=== PATIENT | male | born 2000 | race Two or more races ===

== ENCOUNTER → 2022-11-19 | Outpatient (CLI) | payer BC ==
[2022-11-19 06:52] LABS: Urine Bacteria NONE SEEN /hpf (None Seen); Urine Blood Negative /uL (Negative); Urine Clarity Clear (Clear); Urine Color Colorless (Yellow); Urine Protein, UAD Negative (Negative); Urine Specific Gravity 1.005 (1.001-1.035); Urine Urobilinogen Normal (Negative); Urine WBC <1 /hpf (0 - 3); Urine pH 6.5 (5.0-8.0)
[2022-11-19 07:05] LABS: Eosinophils # (auto) 0.6 10 ^3/uL (0-0.8); Eosinophils % (auto) 9.9 % (0.0-7.0); Hemoglobin 14.6 g/dL (13.5-17.5); Lymphocytes # (auto) 2.2 10 ^3/uL (0.4-5.4); Monocytes # (auto) 0.5 10 ^3/uL (0-1.3); Neutrophils # (auto) 2.7 10 ^3/uL (1.6-8.6); Nucleated Red Blood Cells % 0.2 %; Red Cell Distribution Width 12.8 % (11.8-14.3)
[2022-11-19 07:07] LABS: Basophils # (auto) 0.1 10 ^3/uL (0-0.2); Basophils % (auto) 0.9 % (0.0-2.0); Lymphocytes % (auto) 37.2 % (10.0-50.0); Mean Corpuscular Hgb Conc. 33.1 g/dL (32.0-36.0); Mean Corpuscular Volume 78.4 fL (80.0-100.0); Monocytes % (auto) 7.7 % (0.0-12.0); Neutrophils % (auto) 44.3 % (37.0-80.0); Red Blood Cells 5.61 10^6/uL (4.5-5.90)
[2022-11-19 07:14] LABS: Alanine Aminotransferase 13 U/L (7-40); Alkaline Phosphatase 108 U/L (46-116); Amylase 78 U/L (30-118); Anion Gap 9 (5-15); Aspartate Aminotransferase 13 U/L (13-40); BUN/Creatinine Ratio 10.5 (10.0-20.0); Bilirubin, Total 1.2 mg/dL (0.2-1.0); Blood Urea Nitrogen 10 mg/dL (9-23); Calcium 9.7 mg/dL (8.5-10.1); Carbon Dioxide 26 mmol/L (20-30); Chloride 104 mmol/L (98-107); Cholesterol 148 mg/dL (< 200); Glucose 84 mg/dL (74-106); HDL Cholesterol 62 mg/dL (40-59); LDL Cholesterol 79 mg/dL (< 100); Potassium 3.9 mmol/L (3.5-5.1); Sodium 139 mmol/L (136-145); Triglycerides 48 mg/dL (< 150)
[2022-11-19 07:15] LABS: Total Protein 7.7 g/dL (5.7-8.2)
[2022-11-19 07:26] LABS: Lipase 51 U/L (12-53)
[2022-11-19 07:50] LABS: Erythrocyte Sedimentation Rate 1 mm/hr (0-20)
== END | disposition home or self-care (01) ==
LOC: LAB 06:34
PROVIDERS: ATTEND Internal Medicine
DX: R10.9 Unspecified abdominal pain (principal)
CPT/HCPCS: 36415; 80053; 80061; 81001; 82150; 83690; 84439; 84443; 85025; 85652; 86706

== ENCOUNTER → 2023-06-24 | Outpatient (CLI) | payer BC ==
[2023-06-24 13:58] LABS: Basophils # (auto) 0 10 ^3/uL (0-0.2); Basophils % (auto) 0.5 % (0.0-2.0); Eosinophils # (auto) 0.9 10 ^3/uL (0-0.8); Eosinophils % (auto) 14.3 % (0.0-7.0); Hemoglobin 15.1 g/dL (13.5-17.5); Lymphocytes # (auto) 1.8 10 ^3/uL (0.4-5.4); Lymphocytes % (auto) 28.5 % (10.0-50.0); Mean Corpuscular Hemoglobin 25.1 pg (28.0-32.0); Mean Corpuscular Hgb Conc. 32.1 g/dL (32.0-36.0); Mean Corpuscular Volume 78.2 fL (80.0-100.0); Monocytes # (auto) 0.4 10 ^3/uL (0-1.3); Monocytes % (auto) 6.1 % (0.0-12.0); Neutrophils # (auto) 3.1 10 ^3/uL (1.6-8.6); Neutrophils % (auto) 50.6 % (37.0-80.0); Nucleated Red Blood Cells % 0.1 %; Red Blood Cells 6.01 10^6/uL (4.5-5.90); Red Cell Distribution Width 12.9 % (11.8-14.3); White Blood Cell 6.2 10^3/uL (4.4-10.8)
[2023-06-24 14:42] LABS: Alanine Aminotransferase 15 U/L (7-40); Albumin 4.9 g/dL (3.2-4.8); Alkaline Phosphatase 90 U/L (46-116); Amylase 78 U/L (30-118); Anion Gap 4 (5-15); Aspartate Aminotransferase 16 U/L (13-40); BUN/Creatinine Ratio 9.8 (10.0-20.0); Blood Urea Nitrogen 9 mg/dL (9-23); Carbon Dioxide 29 mmol/L (20-30); Chloride 105 mmol/L (98-107); Erythrocyte Sedimentation Rate 2 mm/hr (0-20); Glucose 109 mg/dL (74-106); Lipase 38 U/L (12-53); Sodium 138 mmol/L (136-145)
[2023-06-24 14:43] LABS: Bilirubin, Total 0.9 mg/dL (0.2-1.0); Total Protein 7.8 g/dL (5.7-8.2)
[2023-06-30 05:07] LABS: Deamidated Gliadin IgA Ab 11 units (0-19); Deamidated Gliadin IgG Ab 5 units (0-19)
[2023-06-30 06:07] LABS: Endomysial IgA Antibody Negative (Negative)
[2023-07-10 21:06] LABS: D001-IgE D pteronyssinus <0.10 kU/L (Class 0); E001-IgE Cat Hair/Dander <0.10 kU/L (Class 0); E005-IgE Dog Dander <0.10 kU/L (Class 0); G002-IgE Bermuda Grass 0.32 kU/L (Class I); IgE Alternaria alternata <0.10 kU/L (Class 0); IgE Cedar, Mountain 0.13 kU/L (Class 0/I); IgE Cockroach, German <0.10 kU/L (Class 0); IgE Cottonwood <0.10 kU/L (Class 0); IgE Elm, American 0.22 kU/L (Class 0/I); IgE Johnson Grass 0.22 kU/L (Class 0/I); IgE Mouse Urine <0.10 kU/L (Class 0); IgE Mugwort 0.11 kU/L (Class 0/I); IgE Penicillium chrysogen <0.10 kU/L (Class 0); IgE Rye, Perennial 0.19 kU/L (Class 0/I); Immunoglobulin E 50 IU/mL (6-495); M002-IgE Cladosporium herbaru <0.10 kU/L (Class 0); M003-IgE Aspergillus fumigatu <0.10 kU/L (Class 0); T007-IgE Oak, White 0.21 kU/L (Class 0/I); T019-IgE Mimosa/Acacia <0.10 kU/L (Class 0); W011-IgE Thistle, Russian 1.61 kU/L (Class III); W014-IgE Pigweed, Rough 0.46 kU/L (Class I)
== END | disposition home or self-care (01) ==
LOC: LAB 06:40
PROVIDERS: ATTEND Internal Medicine
DX: K29.70 Gastritis, unspecified, without bleeding (principal)
CPT/HCPCS: 36415; 80053; 82150; 82785; 83516; 83690; 85025; 85652; 86256

== ENCOUNTER 2023-09-10 06:26 | Emergency (ER) | payer BC ==
[~2023-09-10] VITALS: Ht 182.9 cm; Wt 56.3 kg
[2023-09-10 06:42] VITALS: RESP 18
[2023-09-10 07:19] LABS: Hematocrit 42.8 % (41.0-53.0); Hemoglobin 14.1 g/dL (13.5-17.5); Mean Corpuscular Hgb Conc. 32.9 g/dL (32.0-36.0); Red Blood Cells 5.42 10^6/uL (4.5-5.90); Red Cell Distribution Width 13.2 % (11.8-14.3)
[2023-09-10 07:21] LABS: Amphetamine Screen, Urine Neg (NEGATIVE); Barbiturate Scree,Urine Neg (NEGATIVE); Benzodiazephine Screen, Urine Neg (NEGATIVE); Cannabinoid Screen, Urine Pos (NEGATIVE); Cocaine Screen, Urine Neg (NEGATIVE); Opiate Scree,Urine Neg (NEGATIVE); Phencyclidine Screen, Urine Neg (NEGATIVE)
[2023-09-10 07:22] LABS: Band Neutrophils % (manual) 0; Basophils % (manual) 0 (0.0-2.0); Blast Cells 0; Metamyelocytes % 0; Myelocytes % 0; Promyelocytes % 0
[2023-09-10] MEDS: LIDOCAINE VISCOUS 2% 15ML UD PO ONE (07:24)
[2023-09-10 07:25] LABS: Chloride 104 mmol/L (98-107); Potassium 4.1 mmol/L (3.5-5.1); Sodium 139 mmol/L (136-145)
[2023-09-10] MEDS: DONNATAL 5ml ORAL Elix (BELLADONNA ALK-PHENOBARB) PO ONE (07:25)
[2023-09-10] MEDS: MAALOX PLUS or MAALOX 30 ML PO ONE (07:25)
[2023-09-10 07:26] LABS: Anion Gap 7 (5-15); Carbon Dioxide 28 mmol/L (20-30)
[2023-09-10 07:31] LABS: Blood Urea Nitrogen 10 mg/dL (9-23); Glucose 100 mg/dL (74-106)
[2023-09-10 08:04] LABS: Eosinophils % (manual) 10 (0-7); Lymphocytes % (manual) 27 (10.0-50.0); Monocytes % (manual) 6 (0-12); Platelet Estimate Adequate; Reactive Lymphocytes 2
[2023-09-10 08:52] VITALS: BP 113/72; PULSE 88; TEMP 98.8; O2SAT 98
== END 2023-09-10 08:55 | disposition home or self-care (01) ==
LOC: ER 06:26
DX: K29.70 Gastritis, unspecified, without bleeding (principal); F12.10 Cannabis abuse, uncomplicated
CPT/HCPCS: 36415; 80048; 80307; 85007; 85027

== ENCOUNTER 2024-03-08 22:01 | Emergency (ER) | payer BC ==
[~2024-03-08] VITALS: Ht 180.3 cm; Wt 61.3 kg
--- NOTE | 2024-03-08 22:21 | ED.PDOC ---
GI ASSESSMENT HPI Comments HPI: Poor Historian. 23-year-old male brought in by his parents for evaluation of sudden onset of epigastric periumbilical abdominal pain with the associated nausea and vomiting and diarrhea the are all yellow in color. Nonbilious nonbloody. This happened after he ate a chicken burrito at work. Past Medcial History: Past Surgical History: REVIEW OF SYSTEMS: CONSTITUTIONAL: Denies acute: fever, diaphoresis, chills, HEAD: Denies acute: headache, photophobia Eyes: Denies acute: Double vision, vision loss, eye pain, eye discharge. EARS: Denies acute: tinnitus, hearing loss, ear discharge, ear pain, THROAT: Denies acute: sore throat, swelling, difficulty swallowing , pain with swallowin g, change in voice. NECK: Denies acute: neck pain, neck swelling, stiff neck. HEART: Denies acute : chest pain, palpitations, LUNGS: Denies acute: SOB, wheezing, cough, hemoptysis ABDOMEN: Denies acute: melena , hematemesis, hematochezia SKIN: Denies acute: rash, redness, lesions, itchiness. EXTREMITIES: Denies acute: calf pain, numbness, tingling, weakness, denies pain in extremity. Denies acute: Low back pain. Neuro: Denies acute: focal neurological deficit, motor or sensory focal neurological deficit, tremors, seizure like activity, confusion, dizziness, change in mental status, loss of bowel or bladder function, cauda equina like symptoms. : Denies acute: dysuria, hematuria, flank pain, increase in urinary frequency. PSYCH: Denies acute: hallucination, suicidal ideation, homicidal ideation. PHYSICAL EXAM: General: Moderate acute distress, awake and alert. Head: normocephalic, atraumatic. Neck: supple, trachea is midline, no swelling. Throat: Normal phonation. Eyes:, no erythema, no purulent discharge, no proptosis, no icterus. Heart: regular rate, regular rhythm, no significant murmur appreciated. Lungs: no apparent respiratory distress, Able to speak in full sentences. No wheezing, no rhonchi, no crackles. No stridors Clear to auscultation bilaterally. Abdomen: Epigastric and periumbilical tender to palpation, non distended, soft, no guarding, no rebound, + bowel sounds. Neuro: Awake, Alert, oriented to name, self, situation, follows commands GCS=15. Speech is normal. Skin: no petechia, no purpura, no cyanosis, non-pale, not jaundice. Lower extremities: --no - Pitting edema no deformity, no focal swelling, no calf TTP. Makes eye contact. moves all four extremities. Face: no apparent facial droop. No CVA tenderness to percussion bilaterally. Ambulating in the ED independently. Chief Complaint: Abdominal Pain Time Seen by MD: 22:08 Primary Care Provider: YAZMIN Reviewed Notes: Nurses Notes, Medications, Allergies Allergies: Coded Allergies: NO KNOWN ALLERGIES (Unverified , 09/10/23) Home Meds Active Scripts Ciprofloxacin Hcl (Cipro) 500 Mg Tab, 500 MG PO BID for 7 Days, #14 CAP Prov:MAGAN FLORES DO 03/09/24 Ondansetron Odt 4MG Tab (ZOFRAN PO) 4 Mg Tb, 4 MG PO Q8HPRN PRN for 3 Days, #9 TAB ODT TAB-DISSOLVE IN MOUTH, THEN SWALLOW Prov:MAGAN FLORES DO 03/09/24 Information Source: Patient Past Medical History PAST MEDICAL HISTORY: Denies Surgical History: Denies all surgeries Family History Family History: Unknown Social History Smoker: Non-Smoker Alcohol: Denies ETOH Use Drugs: Marijuana Lives In: Home Was a procedure done? Was a procedure done?: No GI differential Dx Differential Diagnosis: Other (DDX include but not limited to diverticulitis, colitis, gastroenteritis, acute abdomen, SBO, enteritis, constipation, volvulus, appendicitis, Gallbladder disease, choledocolithiasis, ascending cholangitis, pancreatitis, intraAbdominal mass/neoplasm, hepatitis, UTI, pylonephritis, kidney stone, aneurysm, dissection, Inflammatory bowel disease, gastroparesis, ischemic bowel.) X-Ray, Labs, Meds, VS Vital Signs Date Time Temp Pulse Resp B/P (MAP) Pulse Ox O2 Delivery O2 Flow Rate FiO2 03/08/24 23:53 89 17 99 Room Air* 0 21 03/08/24 22:53 73 03/08/24 22:23 98.0 89 16 115/69 (84) 99 Lab Test 03/09/24 00:36 03/08/24 22:43 Range/Units Lactic Acid Level 1.4 2.1 *H 0.4-2.0 mmol/L White Blood Count 13.6 H 4.4-10.8 10^3/uL Red Blood Count 5.82 4.5-5.90 10^6/uL Hemoglobin 15.1 13.5-17.5 g/dL Hematocrit 45.1 41.0-53.0 % Mean Corpuscular Volume 77.4 L 80.0-100.0 fL Mean Corpuscular Hemoglobin 26.0 L 28.0-32.0 pg Mean Corpuscular Hemoglobin Concent 33.6 32.0-36.0 g/dL Red Cell Distribution Width 13.3 11.8-14.3 % Platelet Count 229 140-450 10^3/uL Mean Platelet Volume 8.5 6.9-10.8 fL Neutrophils (%) (Auto) 90.9 H 37.0-80.0 % Lymphocytes (%) (Auto) 4.3 L 10.0-50.0 % Monocytes (%) (Auto) 4.4 0.0-12.0 % Eosinophils (%) (Auto) 0.3 0.0-7.0 % Basophils (%) (Auto) 0.1 0.0-2.0 % Neutrophils # (Auto) 12.4 H 1.6-8.6 10 ^3/uL Lymphocytes # (Auto) 0.6 0.4-5.4 10 ^3/uL Monocytes # (Auto) 0.6 0-1.3 10 ^3/uL Eosinophils # (Auto) 0 0-0.8 10 ^3/uL Basophils # (Auto) 0 0-0.2 10 ^3/uL Nucleated Red Blood Cells 0.0 % Sodium Level 137 136-145 mmol/L Potassium Level 3.7 3.5-5.1 mmol/L Chloride Level 103 98-107 mmol/L Carbon Dioxide Level 22 20-31 mmol/L Anion Gap 12 5-15 Blood Urea Nitrogen 18 9-23 mg/dL Creatinine 0.96 0.700-1.30 mg/dL Glomerular Filtration Rate Calc 115 >90 mL/min BUN/Creatinine Ratio 18.8 10.0-20.0 Serum Glucose 145 H 74-106 mg/dL Calcium Level 10.9 H 8.7-10.4 mg/dL Total Bilirubin 1.5 H 0.2-1.0 mg/dL Aspartate Amino Transferase (AST) 24 13-40 U/L Alanine Aminotransferase (ALT) 19 7-40 U/L Alkaline Phosphatase 84 46-116 U/L Troponin I High Sensitivity < 3 L </=54 ng/L Total Protein 8.1 5.7-8.2 g/dL Albumin 5.4 H 3.2-4.8 g/dL Lipase 32 12-53 U/L [place] [id number] Ph: [phone] DIAGNOSTIC IMAGING Diagnostic Imaging Report : [id number] Signed PATIENT: CYNTHIA FRANK ACCT: [id number] UNIT: [id number] : 2000 LOC: ER ROOM / BED: / AGE / SEX: 23 / M ADM STATUS: REG ER SERVICE 19 ORDERING PHYSICIAN: MAGAN FLORES DO PROCEDURE(s): ABPL - CT AB PEL WO CON-NO ORAL OR IV REASON: abd pain n/v/d ORDER NUMBER(s): [id number], ACCESSION NUMBER(s): [id number] CT SCAN ABDOMEN AND PELVIS WITHOUT CONTRAST CLINICAL HISTORY: abd pain n/v/d TECHNIQUE: Helical axial images are obtained from the lung bases through the pelvis without oral contrast. No intravenous contrast was administered. Coronal and sagittal reformatted images were generated from thin section reconstructions. One or more of the following radiation dose reduction techniques were used for this examination: automated exposure control, adjustment of the mA and/or kV according to patient size, use of iterative reconstruction technique. COMPARISON: None FINDINGS: LOWER THORAX: Imaged lung bases are grossly clear. ABDOMEN AND PELVIS: Evaluation of visceral and vascular structures is limited due to lack of contrast administration. Extensive motion artifact also limits evaluation. As visualized, the unenhanced liver, spleen, pancreas and adrenals appear grossly unremarkable. No sizable, radiopaque cholelithiasis or biliary ductal dilatation appreciated. No hydroureteronephrosis. No evidence of abdominal aortic aneurysm. No definite evidence bowel obstruction. Fluid content in the small bowel without overt dilatation. The entire appendix is not clearly delineated due to motion. No pericecal inflammatory changes are noted at this time. A few borderline e nlarged right lower quadrant mesenteric lymph nodes are noted. No definite evidence of pneumoperitoneum. No free intraperitoneal fluid identified. No definite bladder calculus. No obvious destructive osseous lesions identified. IMPRESSION: Motion artifact significantly limits this noncontrast examination. No definite evidence of bowel obstruction. Fluid content in the small bowel is nonspecific but can be seen with enteritis. The appendix is not clearly delineated. Mildly prominent right lower quadrant mesenteric lymph nodes are nonspecific. Mesenteric adenitis is also included in the differential diagnosis. If there is persistent clinical suspicion for appendicitis, a right lower lower quadrant ultrasound may be attempted to further evaluate. ATED BY: JERAMIE BYERS MD DICTATED DATE/TIME: 03/08/242299 SIGNED BY: JERAMIE BYERS MD SIGNED DATE/TIME: 03/08/242299 CC: Time of 1ST Reevaluation: 01:24 (Patient has so far has not been able to give us a urine sample or a stool sample) Reevaluation 1ST: Improved Patient Education/Counseling: Other Family Education/Counseling: No Family Present Comments Patient presented with the above HPI. Gastrointestinal workup was initiated. patient was found with the above mentioned diagnosis. the following medications were ordered: Hydrocodone, Zofran, IV fluids please refer to order lists of meds and tests obtained by myself Dr. Flores. the following tests were ordered: CMP, CBC, UA, EKG, stool WBC, troponin, lipase, lactic acid, stool bacterial culture, ova&parasite exam, CT abdomen/pelvis w/o contrast Patient ED course and VS have been stabilized. Patient has been reassessed in the ED and remained in a stable condition. Pertinent incidental findings were discussed with the patient and/or family. Patient/family voices understanding and is agreeable with plan. Patient has been observed in the ED adequate length of time to insure improvement/stability. Escalation of care considered: Consideration of escalation to observation or admission Patient left against medical advice. All the reports of any imaging studies that were ordered by myself were reviewed by myself. Departure 1 Departure Time of Disposition: 01:51 Impression: Primary Impression: Nausea vomiting and diarrhea Additional Impressions: Abdominal pain Left against medical advice Disposition: 07 LEFT AGAINST MEDICAL ADVICE Condition: Guarded Additional Instructions: You are leaving against medical advice. Return to the emergency department if you change your mind. Please seek medical attention JACQUES. Follow up with Gastroenterology JACQUES. Adequate fluid hydration. Please return for reassessment as soon as she can. Adequate fluid hydration. Below is a copy of your radiological report for follow up: [address] [address] Ph: [phone] DIAGNOSTIC IMAGING Diagnostic Imaging Report : [id number] Signed PATIENT: CYNTHIA FRANK ACCT: [id number] UNIT: [id number] : 2000 LOC: ER ROOM / BED: / AGE / SEX: 23 / M ADM STATUS: REG ER SERVICE 19 ORDERING PHYSICIAN: MAGAN FLORES DO PROCEDURE(s): ABPL - CT AB PEL WO CON-NO ORAL OR IV REASON: abd pain n/v/d ORDER NUMBER(s): [id number], ACCESSION NUMBER(s): [id number] CT SCAN ABDOMEN AND PELVIS WITHOUT CONTRAST CLINICAL HISTORY: abd pain n/v/d TECHNIQUE: Helical axial images are obtained from the lung bases through the pelvis without oral contrast. No intravenous contrast was administered. Coronal and sagittal reformatted images were generated from thin section reconstructions. One or more of the following radiation dose reduction techniques were used for this examination: automated exposure control, adju stment of the mA and/or kV according to patient size, use of iterative reconstruction technique. COMPARISON: None FINDINGS: LOWER THORAX: Imaged lung bases are grossly clear. ABDOMEN AND PELVIS: Evaluation of visceral and vascular structures is limited due to lack of contrast administration. Extensive motion artifact also limits evaluation. As visualized, the unenhanced liver, spleen, pancreas and adrenals appear grossly unremarkable. No sizable, radiopaque cholelithiasis or biliary ductal dilatation appreciated. No hydroureteronephrosis. No evidence of abdominal aortic aneurysm. No definite evidence bowel obstruction. Fluid content in the small bowel without overt dilatation. The entire appendix is not clearly delineated due to motion. No pericecal inflammatory changes are noted at this time. A few borderline enlarged right lower quadrant mesenteric lymph nodes are noted. No definite evidence of pneumoperitoneum. No free intraperitoneal fluid identified. No definite bladder calculus. No obvious destructive osseous lesions identified. IMPRESSION: Motion artifact significantly limits this noncontrast examination. No definite evidence of bowel obstruction. Fluid content in the small bowel is nonspecific but can be seen with enteritis. The appendix is not clearly delineated. Mildly prominent right lower quadrant mesenteric lymph nodes are nonspecific. Mesenteric adenitis is also included in the differential diagnosis. If there is persistent clinical suspicion for appendicitis, a right lower lower quadrant ultrasound may be attempted to further evaluate. ATED BY: JERAMIE BYERS MD DICTATED DATE/TIME: 03/08/242299 SIGNED BY: JERAMIE BYERS MD SIGNED DATE/TIME: 03/08/242299 CC: e-Prescriptions Ciprofloxacin Hcl (Cipro) 500 Mg Tab 500 MG PO BID for 7 Days, #14 CAP Prov: MAGAN FLORES DO 03/09/24 Ondansetron Odt 4MG Tab (ZOFRAN PO) 4 Mg Tb 4 MG PO Q8HPRN PRN for 3 Days, #9 TAB ODT TAB-DISSOLVE IN MOUTH, THEN SWALLOW Prov: MAGAN FLORES DO 03/09/24 Discharged With: Self, Relative (Father) Critical Care Note Critical Care Time?: No I personally scribed for MAGAN FLORES DO ([email or web address]) on 03/08/24 at 22:21. Electronically submitted by Ester Marc ([email or web address]). I personally scribed for MAGAN FLORES DO ([email or web address]) on 03/09/24 at 00:25. Electronically submitted by Jeferson Girard ([email or web address]). MAGAN FLORES DO Mar 08, 2024 22:21
[2024-03-08 22:23] VITALS: BP 115/69
[2024-03-08 22:54] LABS: Basophils # (auto) 0 10 ^3/uL (0-0.2); Basophils % (auto) 0.1 % (0.0-2.0); Eosinophils # (auto) 0 10 ^3/uL (0-0.8); Eosinophils % (auto) 0.3 % (0.0-7.0); Hematocrit 45.1 % (41.0-53.0); Hemoglobin 15.1 g/dL (13.5-17.5); Lymphocytes # (auto) 0.6 10 ^3/uL (0.4-5.4); Lymphocytes % (auto) 4.3 % (10.0-50.0); Mean Corpuscular Hgb Conc. 33.6 g/dL (32.0-36.0); Mean Corpuscular Volume 77.4 fL (80.0-100.0); Monocytes # (auto) 0.6 10 ^3/uL (0-1.3); Monocytes % (auto) 4.4 % (0.0-12.0); Neutrophils # (auto) 12.4 10 ^3/uL (1.6-8.6); Neutrophils % (auto) 90.9 % (37.0-80.0); Platelet Count (auto) 229 10^3/uL (140-450); Red Blood Cells 5.82 10^6/uL (4.5-5.90); Red Cell Distribution Width 13.3 % (11.8-14.3); White Blood Cell 13.6 10^3/uL (4.4-10.8)
--- NOTE | 2024-03-08 22:55 | ECG ---
[facility] Test Date: 2024-03-08 Test Time: 22:53:52 Pat Name: CYNTHIA FRANK Department: ED Room: Gender: M Medicine Aide: : 2000 Requested By: MAGAN FLORES Order Number: [id number] Reading MD: Mat Franco Measurements Intervals [place] Rate: 73 P: 106 GA: 208 QRS: 98 QRSD: 84 T: 67 QT: 391 QTc: 431 Interpretive Statements Sinus rhythm Borderline prolonged GA interval Consider left atrial enlargement Borderline right axis deviation ST elev, probable normal early repol pattern Electronically Signed On 03-09-2024 8:57:01 PST by Mat Franco Please click the below link to view image of tracing.
--- NOTE | 2024-03-08 23:03 | DVH ---
CT SCAN ABDOMEN AND PELVIS WITHOUT CONTRAST CLINICAL HISTORY: abd pain n/v/d TECHNIQUE: Helical axial images are obtained from the lung bases through the pelvis without oral cont rast. No intravenous contrast was administered. Coronal and sagittal reformatted images were generate d from thin section reconstructions. One or more of the following radiation dose reduction techniques were used for this examination: automated exposure control, adjustment of the mA and/or kV according to patient size, use of iterative reconstruction technique. COMPARISON: None FINDINGS: LOWER THORAX: Imaged lung bases are grossly clear. ABDOMEN AND PELVIS: Evaluation of visceral and vascular structures is limited due to lack of contrast administration. Ext ensive motion artifact also limits evaluation. As visualized, the unenhanced liver, spleen, pancreas and adrenals appear grossly unremarkable. No si zable, radiopaque cholelithiasis or biliary ductal dilatation appreciated. No hydroureteronephrosis. No evidence of abdominal aortic aneurysm. No definite evidence bowel obstruction. Fluid content in the small bowel without overt dilatation. Th e entire appendix is not clearly delineated due to motion. No pericecal inflammatory changes are note d at this time. A few borderline enlarged right lower quadrant mesenteric lymph nodes are noted. No d efinite evidence of pneumoperitoneum. No free intraperitoneal fluid identified. No definite bladder calculus. No obvious destructive osseous lesions identified. IMPRESSION: Motion artifact significantly limits this noncontrast examination. No definite evidence of bowel obstruction. Fluid content in the small bowel is nonspecific but can be seen with enteritis. The appendix is not clearly delineated. Mildly prominent right lower quadrant mesenteric lymph nodes are nonspecific. Mesenteric adenitis is also included in the differential diagnosis. If there is per sistent clinical suspicion for appendicitis, a right lower lower quadrant ultrasound may be attempted to further evaluate.
[2024-03-08 23:19] LABS: Alanine Aminotransferase 19 U/L (7-40); Alkaline Phosphatase 84 U/L (46-116); Anion Gap 12 (5-15); Aspartate Aminotransferase 24 U/L (13-40); BUN/Creatinine Ratio 18.8 (10.0-20.0); Blood Urea Nitrogen 18 mg/dL (9-23); Carbon Dioxide 22 mmol/L (20-31); Chloride 103 mmol/L (98-107); Lipase 32 U/L (12-53); Potassium 3.7 mmol/L (3.5-5.1); Sodium 137 mmol/L (136-145)
[2024-03-08 23:20] LABS: Albumin 5.4 g/dL (3.2-4.8); Calcium 10.9 mg/dL (8.7-10.4); Glucose 145 mg/dL (74-106); Lactic Acid w/Reflex 2.1 mmol/L (0.4-2.0); Total Protein 8.1 g/dL (5.7-8.2)
[2024-03-08 23:21] LABS: Bilirubin, Total 1.5 mg/dL (0.2-1.0)
[2024-03-08] MEDS: SODIUM CHLORIDE 0.9% 1,000 ML IV ONE (23:38)
[2024-03-08] MEDS: ONDANSETRON HCL 4 MG/2 ML VIAL IV ONE (23:38)
[2024-03-08] MEDS: HYDROcodone-ACET 5/325MG TAB PO ONE (23:52)
[2024-03-08 23:53] VITALS: PULSE 89; RESP 17; O2SAT 99
[2024-03-09] MEDS: SODIUM CHLORIDE 0.9% 1,000 ML IV ONE (01:33)
[2024-03-09] MEDS ORDERED: ZOFR4T PO (01:54)
[2024-03-09] MEDS ORDERED: CIPR-173 PO (01:54)
== END 2024-03-09 02:02 | disposition left against medical advice (07) ==
LOC: ER 22:01 → EEVIPCON 22:01 → ER 03-09 02:02
DX: R10.13 Epigastric pain (principal); R19.7 Diarrhea, unspecified
CPT/HCPCS: 36415; 74176; 80053; 83605; 83690; 84484; 85025; 93005; 96361; 96374; 99285; J2405; J7030

== ENCOUNTER 2025-01-04 13:22 | Emergency (ER) | payer BC ==
[~2025-01-04] VITALS: Ht 182.9 cm; Wt 59.9 kg
[~2025-01-04 13:22] MED LIST: CIPR-173 PO; ZOFR4T PO
[2025-01-04 13:24] VITALS: BP 137/60; PULSE 65; RESP 18; TEMP 97.9; O2SAT 100
== END 2025-01-04 14:13 | disposition left against medical advice (07) ==
LOC: ER 13:22
DX: R55 Syncope and collapse (principal); Z53.21 Procedure and treatment not carried out due to patient leaving prior to being seen by health care provider